=== PATIENT | female | born 1940 | race Caucasian/White ===

== ENCOUNTER 2019-12-24 10:00 | Emergency (ER) | payer MEDICARE, SELFPAY ==
[2019-12-24 10:11] VITALS: BP 129/61; PULSE 89; RESP 16; TEMP 37.3; O2SAT 99
--- NOTE | 2019-12-24 10:54 | ED.EXTPRO ---
HPI - Extremity Problem General Chief complaint: Extremity Problem,Nontraumatic Stated complaint: sore on left middle toe Time Seen by Provider: 12/24/19 10:45 Source: patient and RN notes reviewed Mode of arrival: ambulatory Limitations: no limitations History of Present Illness HPI Narrative: 79-year-old female with history of diabetes presents with concern for a sore on the second digit of her left foot. Reports her toes have began rubbing on each other, a callus formed on the second digit. She reports the callus has become red, tender with a small amount of drainage. She denies any difficulty with range of motion, sensation in the foot or digits. MD Complaint: other (Ulcer) Related Data Home Medications Medication Instructions Recorded Confirmed aspirin [Adult Aspirin EC Low 81 mg PO DAILY 12/24/19 12/24/19 Strength] doxycycline hyclate 100 mg PO DAILY 12/24/19 12/24/19 hydrochlorothiazide 50 mg PO DAILY 12/24/19 12/24/19 insulin NPH isoph U-100 human 52 unit SUBCUT BID 12/24/19 12/24/19 [Novolin N Flexpen] metformin 850 mg PO BID 12/24/19 12/24/19 metronidazole 1 applic TOPICAL DAILY 12/24/19 12/24/19 multivitamin,[id number] 1 tablet PO DAILY 12/24/19 12/24/19 [Complete Multivitamin] progesterone micronized 100 mg PO DAILY 12/24/19 12/24/19 simvastatin 10 mg PO DAILY 12/24/19 12/24/19 verapamil 240 mg PO DAILY 12/24/19 12/24/19 Allergies Allergy/AdvReac Type Severity Reaction Status Date / Time amoxicillin [From Augmentin] AdvReac Vomiting Verified 12/24/19 10:38 clavulanic acid AdvReac Vomiting Verified 12/24/19 10:38 [From Augmentin] Review of Systems Review of Systems: Narrative: CONSTITUTIONAL: Denies malaise, chills, sweats, or fever. CARDIOVASCULAR: Denies chest pain, palpitations, or edema. RESPIRATORY: Denies cough or dyspnea. SKIN: Reports a sore to the second digit of her left foot MUSCULOSKELETAL: Denies musculoskeletal pain or myalgia. NEUROLOGIC: Denies numbness, weakness All systems reviewed & are unremarkable except as noted in HPI and below PMFSH Comments At time of signature, agree with nursing past medical, surgical, social and family history. There is no relevant family history pertinent to the presenting complaint Exam Narrative: Exam Narrative: GENERAL: Well-appearing, well-nourished, and in no acute distress. HEAD: Normocephalic, atraumatic. EYES: PERRLA, conjunctivae clear NECK: Supple. CHEST: Speaks in full sentences. No respiratory distress. HEART: Regular rate and rhythm. Normal and equal peripheral pulses. EXTREMITIES: Left foot and digits have normal strength and sensation, normal range of motion. No edema or ecchymosis. 5/5 strength with digit flexion and extension. Normal sensation with sensitivity to light touch and pain. No point tenderness. No skin tenting, no devitalized tissue or atrophy, no trophic changes, no obvious deformity, alignment normal, nearby joints and structures intact. Distal pulses palpable and equal bilaterally, skin warm, dry, pink. Capillary refill less than 3 seconds. SKIN: Warm, dry, no rash. 1 cm in diameter ulcer noted to the lateral aspect of the second digit of the left foot surrounded by 1cm erythema and mild induration. NEURO: Alert and oriented x3. PSYCH: Normal mood and affect Course Course Emergency Course: Patient is aware of diagnosis, understands and agrees to treatment plan. Anticipatory guidance given. Patient agrees to follow-up as directed and is aware of reasons to seek care at the emergency department. Portions of this record may have been created with voice recognition software Vital Signs Vital signs: Vital Signs Temperature 99.1 F 12/24/19 10:11 Pulse Rate 89 12/24/19 10:11 Respiratory Rate 16 12/24/19 10:11 Blood Pressure 129/61 12/24/19 10:11 Pulse Oximetry 99 12/24/19 10:11 Temperature 99.1 F 12/24/19 10:11 Pulse Rate 89 12/24/19 10:11 Respiratory Rate 16 12/24/19 10:11 Blood
== END 2019-12-24 10:59 | disposition home or self-care (01) ==
PROVIDERS: Emergency Provider Nurse Practitioner
DX: E10.621 Type 1 diabetes mellitus with foot ulcer (principal); L97.521 Non-pressure chronic ulcer of other part of left foot limited to breakdown of skin; E78.00 Pure hypercholesterolemia, unspecified; I10 Essential (primary) hypertension
CPT/HCPCS: 99213; G0463